=== PATIENT | male | born 1940 | race Caucasian/White ===

== ENCOUNTER → 2023-09-14 07:22 | Outpatient (REF) | payer OTHER, SELFPAY | LOC: RCS 07:22 | PROVIDERS: ATTENDING PHYSICIAN Internal Medicine Cardiovascular Disease; FAMILY PHYSICIAN Family Medicine | DX: I50.22 Chronic systolic (congestive) heart failure (principal) | CPT/HCPCS: 93306; 93356 ==

== ENCOUNTER → 2024-01-26 10:10 | Outpatient (REF) | payer OTHER, SELFPAY | LOC: CLAB 10:10 | PROVIDERS: ATTENDING PHYSICIAN Physician Assistant | DX: H66.92 Otitis media, unspecified, left ear (principal) | CPT/HCPCS: 87070; 87077 ==

== ENCOUNTER → 2024-02-20 10:37 | Outpatient (REF) | payer OTHER, SELFPAY | LOC: RAD 10:37 | PROVIDERS: ATTENDING PHYSICIAN Surgery Vascular Surgery; FAMILY PHYSICIAN Family Medicine | DX: I73.9 Peripheral vascular disease, unspecified (principal) | CPT/HCPCS: 93922; 93925 ==

== ENCOUNTER → 2024-03-09 10:05 | Outpatient (REF) | payer OTHER, SELFPAY ==
[2024-03-09 11:54] LABS: Blood Urea Nitrogen 28 mg/dl (9-20); Calcium 9.5 mg/dl (8.4-10.2); Carbon Dioxide 28 mmol/L (22-30); Chloride 105 mmol/L (98-107); Glucose 99 mg/dl (70-99); Potassium 4.2 mmol/L (3.5-5.1); Sodium 144 mmol/L (135-145); eGFR 59.26
== END ==
LOC: REG 10:05
PROVIDERS: ATTENDING PHYSICIAN Surgery Vascular Surgery; FAMILY PHYSICIAN Family Medicine
DX: I10 Essential (primary) hypertension (principal)
CPT/HCPCS: 36415; 80048

== ENCOUNTER → 2024-03-12 08:25 | Outpatient (REF) | payer OTHER, SELFPAY | LOC: RAD 08:25 | PROVIDERS: ATTENDING PHYSICIAN Surgery Vascular Surgery; FAMILY PHYSICIAN Family Medicine | DX: I73.9 Peripheral vascular disease, unspecified (principal) | CPT/HCPCS: 75635; Q9967 ==

== ENCOUNTER → 2024-07-26 16:11 | Outpatient (REF) | payer OTHER, SELFPAY | LOC: CLAB 16:11 | PROVIDERS: ATTENDING PHYSICIAN Otolaryngology | DX: H60.509 Unspecified acute noninfective otitis externa, unspecified ear (principal) | CPT/HCPCS: 87070; 87147; 87186 ==

== ENCOUNTER → 2024-09-27 13:00 | Outpatient (REF) | payer OTHER, SELFPAY | LOC: CLAB 13:00 | PROVIDERS: ATTENDING PHYSICIAN Physician Assistant | DX: H66.002 Acute suppurative otitis media without spontaneous rupture of ear drum, left ear (principal) | CPT/HCPCS: 87070; 87147 ==

== ENCOUNTER → 2024-11-28 08:40 | Outpatient (REF) | payer OTHER, SELFPAY | LOC: EMG 08:40 | PROVIDERS: ATTENDING PHYSICIAN Family Medicine | DX: G56.03 Carpal tunnel syndrome, bilateral upper limbs (principal); R20.0 Anesthesia of skin | CPT/HCPCS: 95886; 95911 ==

== ENCOUNTER 2025-02-13 10:33 | Emergency (ER) | payer OTHER, SELFPAY ==
[2025-02-13 10:37] VITALS: BP 137/76
--- NOTE | 2025-02-13 11:21 | ED.GENMED ---
History of Present Illness
General
Chief Complaint: Allergic Reaction
Source: patient
Exam Limitations: none
Time Seen by Provider: 02/13/25 11:11
Nursing documentation reviewed up to this point in time: agreed with
History of Present Illness
History of Present Illness:
Patient presents to ED secondary to right forearm/hand swelling, after he was stung by a wasp, as he was trying to get into his car after doctor's appointment. Denies fever or chills. Denies difficulty swallowing or shortness of breath. Denies
shortness of breath. Denies nausea or vomiting. Denies headache or dizziness. Patient has had local reaction to bee sting in the past, but has never progressed to any respiratory distress.
Past History
Past History
ED Past Medical History: Arrthythmia and Other (Iron deficiency anemia, right bundle branch block, VVI pacemaker); Negative CAD
ED Past Surgical History: Cholecystectomy and Orthopedic
Social History
Tobacco: Non-smoker
Alcohol: None
Drug: None
Personal:
Living: with family (With significant other)
Review of Systems
Review of Systems
Allergies reviewed?: Yes
All Other Systems: ROS reviewed and negative except as documented in HPI and ROS
Constitutional: Reports no symptoms; Denies fever
Respiratory: Reports no symptoms; Denies trouble breathing
Cardiac: Reports no symptoms; Denies chest pain
ABD/GI: Denies nausea or vomiting
Musculoskeletal: Reports other (Forearm swelling with pain)
Skin: Reports no symptoms
Neurological: Reports no symptoms
Phy Exam
Physical Exam
Physical Exam:
Physical Exam
General: mild painful distress, not acutely ill. afebrile
Head: nc/at. eomi
Neck: supple. normal range of motion.
Heart: s1/s2 regular rate and rhythm
Lungs: no acute respiratory distress. clear bilaterally
Abdomen: normal bowel sounds. not tender.
Neuro: alert and oriented x 3. no focal neurological deficits
Skin: right forearm swelling/erythema with multiple punctured hinojosa
Psychiatric: well kept. interactive and cooperative
Extremities: no edema. no calf tenderness.
Course
Orders/Labs/Results
Orders:
Orders
02/13/25 11:20
Prednisone [Deltasone] 50 mg PO NOW STA
Vital Signs
Initial and Last Documented VS:
Initial Vital Signs
Temp Pulse Resp BP Pulse Ox
98.4 F 75 18 137/76 97
02/13/25 10:37 02/13/25 10:37 02/13/25 10:37 02/13/25 10:37 02/13/25 10:37
Last Documented Vital Signs
Temp Pulse Resp BP Pulse Ox
98.4 F 75 18 137/76 97
02/13/25 10:37 02/13/25 10:37 02/13/25 10:37 02/13/25 10:37 02/13/25 11:21
MDM/Problems Addressed
MDM/Problems Addressed:
History and exam consistent with localized reaction to bee sting, without any evidence of other symptoms. As such, patient will be discharged home with recommendation to apply ice, Benadryl at home, along with dose of prednisone in ED prior to
discharge. Advised PCP follow-up as an outpatient, or return to ED with worsening symptoms.
*Pulse Oximetry
SaO2: 97
Oxygen Mode of Delivery: Room air
Patient hypoxic: no
*Critical Care Note
Total Time (30-74mins, 75-104mins- exclusive of procedures): Not Applicable
ED Attending Note
-
Portions of this chart may have been created with voice recognition software.� Occasional wrong word or��sound alike� substitutions may have occurred due to the inherent limitations of voice recognition software.
Discharge Plan
Departure
Patient Disposition: Home (Routine Discharge)
Date of Disposition: 02/13/25
Time of Disposition: 11:23
Patient with high blood pressure during this ER visit?: Yes
Condition: Good
Discharge Problem:
Bee sting
Instructions: Insect Bites and Stings (DC)
Prescriptions:
No Action
atorvastatin 20 mg tablet
20 mg PO DAILY
cyanocobalamin (vitamin B-12) [Vitamin B-12] 1,000 mcg Tablet
1,000 mcg PO .2 TIMES A WEEK
ferrous sulfate 325 mg (65 mg iron) Tablet
325 mg PO Q48H
metoprolol succinate 25 mg tablet extended release 24 hr
25 mg PO QPM
Xarelto 20 mg Tablet
20 mg PO QPM Qty: 30 0RF
furosemide 40 mg Tablet
40 mg PO DAILY
tamsulosin 0.4 mg Capsule
0.4 mg PO DAILY
spironolactone 25 mg tablet
12.5 mg PO DAILY
Referrals:
Roosevelt Holley MD [Family Provider, Family Practice]
Activity Restrictions/Additional Instructions:
As discussed, please take Benadryl as soon as you arrive at home, along with continual application of ice to affected arm. In addition, recommend keeping the affected arm elevated, as much as possible today. Please follow-up with your primary care
physician with any further concerns.
Interventions
Interventions:
*Risk Screen - Suicide Last Done: 02/13/25 10:37
*General Assessment Last Done: 02/13/25 10:37
*Neglect/Abuse Screening Last Done: 02/13/25 10:37
*ED- Fall Risk Assessment Last Done: 02/13/25 11:37
*ED COVID-19 Vaccine History Last Done: 02/13/25 11:36
*ED Influenza Vaccine History Last Done: 02/13/25 11:36
*Nursing Disposition Last Done: 02/13/25 11:37
ED- Cardiac Assessment Last Done: 02/13/25 11:36
ED- Pulmonary Assessment Last Done: 02/13/25 11:36
ED-Skin Assessment Last Done: 02/13/25 11:36
Discharge Date and Time
Discharge Date/Time: 02/13/25 11:37
Print Language: MACEDONIAN
[2025-02-13] MEDS: DELTASONE 50 MG PO (11:29)
== END 2025-02-13 11:37 | disposition home or self-care (01) ==
LOC: EMR 10:33
PROVIDERS: EMERGENCY PHYSICIAN Emergency Medicine; FAMILY PHYSICIAN Family Medicine
DX: T63.461A Toxic effect of venom of wasps, accidental (unintentional), initial encounter (principal); R03.0 Elevated blood-pressure reading, without diagnosis of hypertension; D50.9 Iron deficiency anemia, unspecified; Z95.0 Presence of cardiac pacemaker
CPT/HCPCS: 99283

== ENCOUNTER → 2025-04-18 08:50 | Outpatient (REF) | payer OTHER, SELFPAY | LOC: RAD 08:50 | PROVIDERS: ATTENDING PHYSICIAN Surgery Vascular Surgery; FAMILY PHYSICIAN Family Medicine | DX: I73.9 Peripheral vascular disease, unspecified (principal) | CPT/HCPCS: 93922 ==

== ENCOUNTER → 2025-04-29 08:42 | Outpatient (REF) | payer OTHER, SELFPAY | LOC: RAD 08:42 | PROVIDERS: ATTENDING PHYSICIAN Internal Medicine Cardiovascular Disease; FAMILY PHYSICIAN Family Medicine | DX: I50.20 Unspecified systolic (congestive) heart failure (principal) | CPT/HCPCS: 78803; A9538 ==